=== PATIENT | female | born 1965 | race Caucasian/White ===

== ENCOUNTER 2017-06-12 20:19 | Emergency (ER) | payer BC, OTHER ==
[2017-06-12 20:40] VITALS: BP 114/73
--- NOTE | 2017-06-12 21:02 | EDM.PDOC ---
ED HPI GENERAL MEDICAL PROBLEM - General Chief Complaint: Upper Extremity Injury/Pain Stated Complaint: POSS BROKEN WRIST Time Seen by Provider: 06/12/17 20:59 Source of Information: Reports: Patient History Limitations: Reports: No Limitations - History of Present Illness INITIAL COMMENTS - FREE TEXT/NARRATIVE: Presented to the ER with painful swollen Left wrist after a Fall on outstretched Left wrist. Reports that while jumping out of a Pool, she fell on the Left wrist. Rates the pain as 7/10. No other associated injuries. Presented to the ER for further evaluation. 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 Left Wrist Pain Score (Numeric/FACES): 2 - Related Data Allergies Allergy/AdvReac Type Severity Reaction Status Date / Time No Known Allergies Allergy Verified 04/17/14 10:10 Home Meds: Home Meds Hydrocodone/Acetaminophen [Hydrocodon-Acetaminophen 5-325] 1 each PO .Q6H PRN # 20 tablet 06/12/17 [Rx] Past Medical History - Past Health History Medical/Surgical History: Denies Medical/Surgical History Social & Family History - Family History Family Medical History: Noncontributory - Tobacco Use Smoking Status *Q: Never Smoker Second Hand Smoke Exposure: No - Alcohol Use Number of Drinks Per Day: 5 - Recreational Drug Use Recreational Drug Use: No Review of Systems - Review of Systems Review Of Systems: See Below Constitutional: Reports: No Symptoms Eyes: Reports: No Symptoms Ears: Reports: No Symptoms Nose: Reports: No Symptoms Mouth/Throat: Reports: No Symptoms Respiratory: Reports: No Symptoms Cardiovascular: Reports: No Symptoms GI/Abdominal: Reports: No Symptoms Genitourinary: Reports: No Symptoms Musculoskeletal: Reports: Other (Left Wrist -- swollen and tender) Skin: Reports: No Symptoms Neurological: Reports: No Symptoms Psychiatric: Reports: No Symptoms ED EXAM, GENERAL - Physical Exam Exam: See Below Exam Limited By: No Limitations General Appearance: Alert, WD/WN, No Apparent Distress Eye Exam: Bilateral Eye: EOMI Ears: Normal External Exam, Normal Canal, Hearing Grossly Normal, Normal TMs Ear Exam: Bilateral Ear: Auricle Normal Nose: Normal Inspection, Normal Mucosa, No Blood Throat/Mouth: Normal Inspection, Normal Lips, Normal Teeth, Normal Gums, Normal Oropharynx, Normal Voice, No Airway Compromise Head: Atraumatic, Normocephalic Neck: Normal Inspection, Supple, Non-Tender, Full Range of Motion Respiratory/Chest: No Respiratory Distress, Lungs Clear, Normal Breath Sounds, No Accessory Muscle Use Cardiovascular: Normal Peripheral Pulses, Regular Rate, Rhythm, No Edema, No JVD , No Murmur GI/Abdominal: Normal Bowel Sounds, Soft, Non-Tender, No Organomegaly, No Distention Back Exam: Normal Inspection, Full Range of Motion Extremities: Normal Inspection, Normal Range of Motion Neurological: Alert, Oriented, CN II-XII Intact, Normal Cognition, Normal Gait Psychiatric: Normal Affect, Normal Mood Skin Exam: Warm, Dry, Intact, Normal Color Course - Vital Signs Text/Narrative:: X ray showed Left Colles Fracture. Anesthesia consulted for conscious sedation. Left colles fracture reduced and post reduction X ray acceptable. Discharged with a prescription for Hydrocodone and advised to make appointment to follow with Ortho Last Recorded V/S: Last Vital Signs Temp 36.6 C 06/12/17 20:30 Pulse 70 06/12/17 20:30 Resp 16 06/12/17 20:30 BP 114/73 06/12/17 20:30 Pulse Ox 99 06/12/17 20:30 - Orders/Labs/Meds Orders: Active Orders 24 hr Category Date Time Status Wrist 2V Lt [CR] Stat Exams 06/12/17 21:59 Taken Wrist 2V Lt [CR] Stat Exams 06/12/17 22:01 Taken Departure - Departure Time of Disposition: 22:40 Disposition: Home, Self-Care 01 Clinical Impression: Fracture of radius Qualifiers: Encounter type: initial encounter Radius location: distal Fracture type: closed Fracture morphology: Colles' Laterality: left Qualified Code(s): S52.532A - Colles' fracture of left radius, initial encounter for closed fracture - Discharge Information Prescriptions: Hydrocodone/Acetaminophen [Hydrocodon-Acetaminophen 5-325] 1 each PO .Q6H PRN # 20 tablet PRN Reason: Pain Instructions: Colles Fracture Referrals: Javier Berrios MD [Primary Care Provider] - Forms: ED Department Discharge Additional Instructions: Follow with PCP Make appointment to see Orthopedic in 1 week Hydrocodone for pain Return if symptoms worsen Call your Physician or Return to Emergency Department if: * Your condition worsens in any way. * You develop fever greater than 100.4. * You have vomitting that does not stop with medications. * You have pain that is not controlled with medications. - My Orders Last 24 Hours: My Active Orders 06/12/17 21:59 Wrist 2V Lt [CR] Stat 06/12/17 22:01 Wrist 2V Lt [CR] Stat - Assessment/Plan Last 24 Hours: My Active Orders 06/12/17 21:59 Wrist 2V Lt [CR] Stat 06/12/17 22:01 Wrist 2V Lt [CR] Stat
[2017-06-12] MEDS ORDERED: Lactated Ringers 1,000 ML IV ONE (21:30)
[2017-06-12] MEDS ORDERED: Propofol 200 MG/20 ML SDV IV ONE (21:30)
[2017-06-12] MEDS ORDERED: fentaNYL 100 MCG/2 ML SDV IV ONE (21:30)
[2017-06-12] MEDS ORDERED: Midazolam 1 MG/ML 2 ML SDV IV ONE (21:30)
[2017-06-12] MEDS ORDERED: Ketorolac 30 MG/ML SDV IVPUSH ONE (21:30)
[2017-06-12] MEDS ORDERED: Ketamine 500 mg/10 ML MDV IV ONE (21:30)
[2017-06-12] MEDS ORDERED: Ondansetron 4 MG/2 ML SDV IVPUSH ONE (21:30)
[2017-06-12] MEDS ORDERED: Acetaminophen/HYDROcodone 325-5 MG Tab PO ONE (22:48)
--- NOTE | 2017-06-15 12:07 | CR ---
INDICATION: Fell while playing pool volleyball. COMPARISON: None. LEFT WRIST SERIES: (06/12/2017 at 2034 hours) FINDINGS: AP and lateral views without oblique view, precludes optimal evaluation of subtle articular pathology. Moderately comminuted fracture of the distal metaphyseal region of the radius exists with moderate apex volar angulation deformity, and approximately 1.5 cm of shortening. Also, one-quarter shaft width lateral displacement. No callus formation present. No dislocation, destructive change. No inflammatory, arthritic change. Moderate ulnar positive variant exists, which is a normal variant, however, increased risk for triangular fibrocartilage tear does exist with this normal variant. IMPRESSION: Acute, comminuted fracture of the distal radius with marked malalignment. MTDD
--- NOTE | 2017-06-15 12:09 | CR ---
INDICATION: Post reduction. LEFT WRIST SERIES: (06/15/2017 at 2159 hours) FINDINGS: Moderately comminuted fracture of the distal metaphysis of the radius with near anatomic alignment, markedly improved. No callus formation present. No other dislocation, destructive change. IMPRESSION: Acute, markedly comminuted fracture of distal radius with near anatomic alignment, markedly improved. MTDD
== END 2017-06-12 22:25 | disposition home or self-care (01) ==
LOC: FB.ED 20:19
DX: S52.532A Colles' fracture of left radius, initial encounter for closed fracture (principal); W19.XXXA Unspecified fall, initial encounter
CPT/HCPCS: 25605; 73100; 99284; A9270; J1885; J2250; J2405; J2704; J3010; J7120; 29125; 73110-LT